=== PATIENT | female | born 1960 | race Caucasian/White ===

== ENCOUNTER 2019-08-01 11:10 | Emergency (ER) | payer OTHER ==
[~2019-08-01] VITALS: Ht 154.9 cm; Wt 68.0 kg
--- NOTE | 2019-08-01 11:18 | NUR ---
ED Nurse Note: PT WALKED IN TO ED FOR C/O DISCOMFORT TO LEFT EYE. REDNESS, MILD SWELLING AND TEARING NOTED. DENIES VISION CHANGED.
[2019-08-01 11:21] VITALS: BP 164/80
--- NOTE | 2019-08-01 11:57 | NUR ---
ED Nurse Note: ED PA @ bedside
--- NOTE | 2019-08-01 12:02 | Emergency Room Report ---
History of Present Illness General Chief Complaint: Eye Problems Source: Patient Present Illness HPI Female with no significant medical history complaining of pain and irritation left eye x2 days. Denies any fall or injury. Denies any blurry vision, photophobia. Denies fever and chills, URI symptoms. Reports that she has been taking oral steroids as her son who appears to be a physician in a different country told her that she needs to take steroids. Is requesting oral antibiotics for preventative measures as she is about to travel next week and wants to avoid getting any bacterial infections. Denies chest pain, shortness of breath, palpitation, headache and dizziness. Allergies: Coded Allergies: No Known Allergies (Unverified , 08/01/19) Patient History Past Medical History: see triage record Past Surgical History: unable to obtain Pertinent Family History: none Now: No Immunizations: UTD Reviewed Nursing Documentation: PMH: Agreed; PSxH: Agreed Nursing Documentation-PMH Past Medical History: No Stated History Review of Systems All Other Systems: negative except mentioned in HPI Physical Exam Vital Signs Date Time Temp Pulse Resp B/P (MAP) Pulse Ox O2 Delivery O2 Flow Rate FiO2 08/01/19 11:12 98.4 96 16 168/75 (106) 96 Room Air Sp02 EP Interpretation: reviewed, normal General Appearance: no apparent distress, alert, GCS 15, non-toxic Head: normocephalic, atraumatic Eyes: left eye other - Left conjunctiva injected ENT: hearing grossly normal, normal pharynx, no angioedema, normal voice Neck: full range of motion, supple, thyroid normal Respiratory: chest non-tender, lungs clear, normal breath sounds, speaking full sentences Cardiovascular #1: regular rate, rhythm, no edema Gastrointestinal: non tender, soft, no mass Genitourinary: no CVA tenderness Musculoskeletal: back normal Neurologic: alert, motor strength/tone normal, oriented x3, sensory intact, responsive, speech normal Psychiatric: judgement/insight normal, memory normal, mood/affect normal, no suicidal/homicidal ideation Skin: no rash Lymphatic: no adenopathy Medical Decision Making PA Attestation All diagnoses and treatment plans were reviewed and discussed with my supervising physician Dr. Mendoza Diagnostic Impression: Primary Impression: Bacterial conjunctivitis ER Course Female with no significant medical history complaining of pain and irritation left eye x2 days. Denies any fall or injury. Denies any blurry vision, photophobia. Denies fever and chills, URI symptoms. Reports that she has been taking oral steroids as her son who appears to be a physician in a different country told her that she needs to take steroids. Is requesting oral antibiotics for preventative measures as she is about to travel next week and wants to avoid getting any bacterial infections. Denies chest pain, shortness of breath, palpitation, headache and dizziness. Ddx considered but are not limited to: bacterial conjunctivitis, allergic conjunctivitis, viral conjunctivitis, periorbital cellulitis, global trauma Vital signs: are WNL, pt. is afebrile H&PE are most consistent with: Bacterial conjunctivitis ORDERS: Ofloxacin ophthalmic ED INTERVENTIONS: None required at this time. DISCHARGE: At this time pt. is stable for d/c to home. Will provide printed patient care instructions, and any necessary prescriptions. Care plan and follow up instructions have been discussed with the patient prior to discharge. Explained to patient that antibiotics should not be taken to prevent infection as patient currently does not have any bacterial infection. Patient to follow-up primary care provider, possible strategic marketing specialist. If worsening symptoms return to the emergency room. Also stop taking prednisone. Last Vital Signs Date Time Temp Pulse Resp B/P (MAP) Pulse Ox O2 Delivery O2 Flow Rate FiO2 08/01/19 11:21 98.5 80 16 164/80 96 Room Air Disposition: HOME, SELF-CARE Condition: Stable Scripts Ofloxacin (Ofloxacin) 5 Ml Drops 2 DROP OP Q6HR for 7 Days, #5 ML Prov: Lana Martin 08/01/19 Patient Instructions: Bacterial Conjunctivitis, [id number] Additional Instructions: Take medication as directed, change your pillowcase, avoid wearing eye make-up, if worsening symptoms return to emergency room. Follow-up with strategic marketing specialist Lana Martin Aug 01, 2019 12:02
[2019-08-01] MEDS ORDERED: OFLOXACIN10 ML OP (12:04)
[2019-08-01 12:11] VITALS: BP 159/85
--- NOTE | 2019-08-01 12:11 | NUR ---
ER DISCHARGE NOTE: Patient is cleared to be discharged per ERMD, pt is aox4, on room air, with stable vital signs as documented. pt was given dc and prescription instructions, pt was able to verbalize understanding, pt id band removed. pt is able to ambulate with steady gait. pt took all belongings.
== END 2019-08-01 12:11 | disposition home or self-care (01) ==
LOC: EMR 12:10
DX: H10.9 Unspecified conjunctivitis (principal)
CPT/HCPCS: 99282